=== PATIENT | male | born 1970 | race Caucasian/White ===

== ENCOUNTER 2016-07-05 19:25 | Emergency (ER) | payer OTHER ==
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
--- NOTE | 2016-07-10 10:35 | ED DISCHARGE INSTRUCTIONS ---
Patient: DEEDEE JASON General Instructions Formerly [facility] VisitID: [id number] [address] [place] [address] 46y, M Registration Date/Time: 07/05/2016 Medication refill. Bipolar disorder. Diabetes. Hypertension. INSTRUCTIONS Warnings: Further evaluation is necessary. GENERAL WARNINGS: Return or contact your physician immediately if your condition worsens or changes unexpectedly, if not improving as expected, or if other problems arise. Prescription Medications: Atorvastatin Calcium Oral (Tablet 20 mg), one po daily. # fifteen (15) no refills Omeprazole Oral 20 mg, one po daily. # fifteen (15) no refills QUEtiapine Fumarate Oral (Tablet 200 mg), 1 tablet po 2x a day. # thirty (30). no refills QUEtiapine Fumarate Oral (Tablet 400 mg) 1 tablet, at bedtime. # fifteen (15). no refills Ferrous Sulfate Oral (Tablet 325 (65 Fe) mg), one po daily. # fifteen (15) no refills MetFORMIN HCl Oral (Tablet 850 mg) 1 tablet po 2x a day. # thirty (30). no refills Depakote Oral (Tablet Delayed Release 500 mg) 1 tablet po 2x a day. # thirty (30). no refills. Understanding of the discharge instructions verbalized by patient. Follow-up with: [facility], , , [address], , [place], [phone] Follow up tomorrow. Call for the next available appointment. ADDITIONAL INFORMATION Bipolar Disorder Bipolar disorder (formerly called manic depression) is an illness that causes strong mood swings between depression and blas. This can interfere with work and relationships. In a manic episode, you may think fast and do things quickly. It may seem like you are getting a lot done. At first, this may feel very good; but in the extreme this can lead to a lifestyle that is disorganized, chaotic, and includes risky behavior (spending sprees, sexual acting-out, or drug use). In later stages, it may affect eating (no interest in food) and sleeping (unable to sleep for days at a time). Speech may speed up and become difficult for others to understand. You may appear to others as if you are in your own world. In a depressive episode, you may feel a lack of interest in normal activities. Sometimes there is sadness or guilt without any clear reason. Thinking may become slow and there can be a lack energy or feeling of hopelessness. Some people have thoughts of harming themselves at this stage. Thoughts can even turn to suicide. Between these two phases you may actually feel okay. This does not mean that the illness is gone. People with this disorder will usually have to treat it all of their life. Medication and good care can greatly reduce the symptoms. The exact cause of this illness is unknown. However, there is a genetic link that makes a person more likely to get this problem. Also, the use of drugs such as speed (amphetamine) and cocaine increase the chances of this illness appearing. Home Care: Be sure to take your medicine even if you think you dont need it. Talk with your family about your thoughts and feelings. Follow Up with your doctor or therapist as directed by our staff. They can help you to find ways to improve your life. For more information: The National [place] [employer] Mental Illness www.oksana.org 781-891-9203. Get Prompt Medical Attention if any of the following occur: Feeling like your symptoms are getting worse (depression, agitation, excess energy) Unable to eat or sleep for more than 48 hours Feeling out of control (racing thoughts, poor concentration) Feeling like you want to harm yourself or another Being unable to care for yourself Diabetes (General Information) Cells of the body need glucose (sugar) for fuel. Insulin is the hormone in the body that lets glucose move from the blood into the cells. Diabetes is a chronic health condition where the body is not able to produce enough insulin, or does not respond well to its own insulin. Because the glucose in the blood cannot get into the cells, it builds up in the blood causing high blood sugar (hyperglycemia). Your actual blood sugar level is a result of the balance between several factors. These include what kind of food you eat and how much of it you eat, how much exercise you get, and the amount of insulin present in your body. Eating too much of the wrong kinds of food or not taking diabetes medicine on time can cause high blood sugar. Infections can cause high blood sugar even if you are taking medicines correctly. Missing meals, not eating enough food, or taking too much diabetes medicine can lead to low blood sugar. Untreated over long periods of time, diabetes can cause serious problems such as heart disease, stroke, kidney failure, blindness, nerve pain or loss of feeling in the legs and feet, and gangrene of the feet. With good treatment keeping your blood sugar under control, you can prevent or delay the complications of diabetes. Normal blood sugar levels are 70-130 one to two hours before a meal and not more than 180 two hours after a meal. Home Care: Follow your prescribed diabetic diet and take insulin or oral diabetic medicine exactly as ordered. Monitor blood sugars as advised. Keep a log of your results. This will help your doctor adjust your medicines to keep your blood sugar under control. Try to achieve your ideal weight. Proper diet and exercise can reduce or eliminate the need to take diabetes medicine. Avoid tobacco smoking, which worsens the effect of diabetes on your circulation. The risk of a heart attack in a diabetic is 15 times more likely if you smoke. Pay attention to good foot care. If you have lost feeling in your feet you may not notice an injury or infection. Check your feet and between your toes at least once a week. Wear a medical alert bracelet or carry a card in your wallet explaining that you are diabetic. In the event that you become very ill and are unable to give this information, it will help medical personnel provide proper care. If you become sick with a cold, the flu, or an infection (viral or bacterial), please do the following: Review your diabetes sick plan and contact your physician as instructed. You may have been advised to call the doctor immediately if: Your blood sugar is above 240 while taking your diabetes medication Your urine ketone levels are above normal or showing high levels of ketones You have been vomiting more than 6 hours You experience difficulty to trouble breathing You develop a high fever or you have had a fever for a couple of days and you aren't getting better You become light-headed and more sleepy than usual Keep taking your oral diabetes medicine (pills) even if you have been vomiting and feeling sick. Contact your doctor immediately for advice because you may need insulin to lower your blood sugar until you recover from your illness. Keep taking your insulin, even if you have been vomiting and feeling sick. Call your doctor immediately and ask if a temporary adjustment of your insulin dose is needed based on your blood glucose (sugar) results. Check your blood sugar every 2 to 4 hours, or at least 4 times a day. Check your keytones often. If you are vomiting and having diarrhea, monitor them more frequently. Don't skip meals. Try to eat small meals on a regular schedule, even if you do not have an appetite. Drink water or other calorie-free, non-caffeinated liquids to stay hydrated. If you are nauseated or vomiting, drink small amounts (sips, a teaspoon) every 5 minutes. To prevent dehydration, try to drink a cup or 8 ounces of fluids every hour while you are awake. Always carry a source of fast-acting sugar with you in case you get symptoms of low blood sugar (below 70). At the first sign of low blood sugar, eat or drink 15 to 20 grams of fast-acting sugar to raise your blood sugar. Examples include: 3 to 4 glucose tablets (found at most drugstores) 4 ounces (1/2 cup) of regular (not diet) softdrinks 4 ounces (1/2 cup) of any fruit juice 8 ounces (1 cup) of milk 5 to 6 pieces of hard candy 1 tablespoon of honey Check your blood sugar 15 minutes after treating yourself. If it is still low (below 70), take another 15 to 20 grams of fast-acting sugar. Test again in 15 minutes. If it returns to normal (70 or above), eat a snack or meal to keep your blood sugar in a safe range. If it remains low, call your doctor or go to an emergency room. Follow Up with your doctor as advised by our staff. For more information, contact the [place] [employer]. www.diabetes.org or 344-113-4557. Get Prompt Medical Attention if any of the following occur: HIGH BLOOD SUGAR: frequent urination, dizziness, drowsiness, thirst, headache, nausea or vomiting, abdominal pain, vision changes, fast breathing, confusion or loss of consciousness LOW BLOOD SUGAR: fatigue, headache, shakes, excess sweating, hunger, feeling anxious or restless, vision changes, drowsiness, weakness, confusion or loss of consciousness Chest pain or shortness of breath Dizziness or fainting Weakness of an arm or leg or one side of the face Trouble with speech or vision High Blood Pressure --Established High Blood Pressure (Hypertension) is a chronic disease. The cause is unknown in most cases. It can usually be controlled with lifestyle changes and/or medicines. Symptoms of high blood pressure may include headache, dizziness, visual changes, chest pain and shortness of breath. Sometimes it causes no symptoms at all. However, even if there are no symptoms, untreated high blood pressure increases the risk of heart attack, also known as acute myocardial infarction, or AMI, and stroke. It is a serious health risk and should not be ignored. A normal blood pressure is 120/80 or less. The first (top) number is the "systolic" pressure. The second (bottom) number is the "diastolic" pressure. Hypertension exists when either the top number is 140 or higher, OR the bottom number is 90 or higher on repeated measurements. Home Care: All patients with high blood pressure should do the following to lower their pressure. If you are on medicines, then these methods may reduce or eliminate your need for medicines in the future. Begin a weight loss program if you are overweight. Reduce your salt intake. Avoid high salt foods (olives, pickles, smoked meats, salted potato chips, etc.). Do not add salt to your food at the table. Use only small amounts of salt when cooking. Begin an exercise program. Discuss with your doctor what type of exercise program would be best for you. It doesn't have to be difficult. Even brisk walking for 20 minutes three times a week is a good form of exercise. Avoid medicines which contain heart stimulants. This includes many cold and sinus decongestant pills and sprays as well as diet pills. Check the warnings about hypertension on the label. Stimulants such as amphetamine or cocaine could be lethal for someone with hypertension. Never take these. Limit your caffeine intake or switch to caffeine-free products. Stop smoking. If you are a long-time smoker, this can be hard. Enroll in a stop-smoking program to improve your chance of success. Learning how to handle stress better is an important part of any program to lower blood pressure. Learn about relaxation methods such as meditation, yoga or biofeedback. If medicines were prescribed, take them exactly as directed. Missing doses may cause your blood pressure get out of control. Consider buying an automatic blood pressure machine (available at most pharmacies). Use this to monitor your blood pressure at home and report the results to your doctor. Follow Up: Regular visits to your own physician for blood pressure checks and medicine adjustment is an important part of your care. Make a follow-up appointment as directed by our staff. Get Prompt Medical Attention if any of the following occur: Chest pain or shortness of breath Severe headache Throbbing or rushing sound in the ears Nosebleed Sudden severe abdominal pain Extreme drowsiness, confusion or fainting Dizziness or vertigo (dizziness with spinning sensation) Weakness of an arm or leg or one side of the face Difficulty with speech or vision You have been given the following additional information: Bipolar Disorder Diabetes, General Info Hypertension, Established (Electronically signed by Marciano Juárez MD 07/06/2016 4:57)
--- NOTE | 2016-07-10 10:35 | ED MAR SUMMARY ---
..... Medication Administration Record [facility] [address] [place], [place] [id number] Patient: DEEDEE JASON Visit ID: [id number] 46y, M Weight: 95.2 kg Height/Length: 70 in BMI: 30.1 ALLERGIES: No Known Drug Allergy
--- NOTE | 2016-07-10 10:35 | ED MED RECONCILIATION SUMMARY ---
Patient: DEEDEE JASON Medication Reconciliation Report Merged With [facility] VisitID: [id number] [address] [place] [address] 46y, M Registration Date/Time: 07/05/2016 Weight: 95.2 kg Height/Length: 70 in. BMI: 30.1 ALLERGIES: No Known Drug Allergy The patient's Home Medications are listed below: THE FOLLOWING MEDICATIONS NEED TO BE RECONCILED: ASA Oral Atorvastatin Calcium Oral (20 mg), daily Depakote Oral Depakote Oral (500 mg) 1 tablet, 2x a day Diazepam Oral (10 mg) 1 tablet, 2x a day Ferrous Sulfate Oral (325 (65 Fe) mg), daily MetFORMIN HCl Oral (850 mg) 1 tablet, 2x a day Omeprazole Oral 20 mg, daily QUEtiapine Fumarate Oral (400 mg) 1 tablet, at bedtime QUEtiapine Fumarate Oral (200 mg), 2x a day Sodium Chloride Oral (1 gm) 2 tablets Sodium Chloride Oral (1 gm) 2 tablets Sodium Chloride Oral (1 gm) 2 tablets The source(s) of the original Home Medication information: patient The following Medications were given to the patient in the Emergency Department: None. The following Medications were prescribed to the patient: Atorvastatin Calcium Oral (Tablet 20 mg), one po daily. # fifteen (15) no refills Omeprazole Oral 20 mg, one po daily. # fifteen (15) no refills QUEtiapine Fumarate Oral (Tablet 200 mg), 1 tablet po 2x a day. # thirty (30). no refills QUEtiapine Fumarate Oral (Tablet 400 mg) 1 tablet, at bedtime. # fifteen (15). no refills Ferrous Sulfate Oral (Tablet 325 (65 Fe) mg), one po daily. # fifteen (15) no refills MetFORMIN HCl Oral (Tablet 850 mg) 1 tablet po 2x a day. # thirty (30). no refills Depakote Oral (Tablet Delayed Release 500 mg) 1 tablet po 2x a day. # thirty (30). no refills. -- Marciano Juárez MD
--- NOTE | 2016-07-10 10:35 | ED MAR SUMMARY ---
..... Medication Administration Record [facility] [address] [place], [place] [id number] Patient: DEEDEE JASON Visit ID: [id number] 46y, M Weight: 95.2 kg Height/Length: 70 in BMI: 30.1 ALLERGIES: No Known Drug Allergy
--- NOTE | 2016-07-10 10:35 | ED MED RECONCILIATION SUMMARY ---
Patient: DEEDEE JASON Medication Reconciliation Report [facility] VisitID: [id number] [address] [place] [address] 46y, M Registration Date/Time: 07/05/2016 Weight: 95.2 kg Height/Length: 70 in. BMI: 30.1 ALLERGIES: No Known Drug Allergy The patient's Home Medications are listed below: THE FOLLOWING MEDICATIONS NEED TO BE RECONCILED: ASA Oral Atorvastatin Calcium Oral (20 mg), daily Depakote Oral Depakote Oral (500 mg) 1 tablet, 2x a day Diazepam Oral (10 mg) 1 tablet, 2x a day Ferrous Sulfate Oral (325 (65 Fe) mg), daily MetFORMIN HCl Oral (850 mg) 1 tablet, 2x a day Omeprazole Oral 20 mg, daily QUEtiapine Fumarate Oral (400 mg) 1 tablet, at bedtime QUEtiapine Fumarate Oral (200 mg), 2x a day Sodium Chloride Oral (1 gm) 2 tablets Sodium Chloride Oral (1 gm) 2 tablets Sodium Chloride Oral (1 gm) 2 tablets The source(s) of the original Home Medication information: patient The following Medications were given to the patient in the Emergency Department: None. The following Medications were prescribed to the patient: Atorvastatin Calcium Oral (Tablet 20 mg), one po daily. # fifteen (15) no refills Omeprazole Oral 20 mg, one po daily. # fifteen (15) no refills QUEtiapine Fumarate Oral (Tablet 200 mg), 1 tablet po 2x a day. # thirty (30). no refills QUEtiapine Fumarate Oral (Tablet 400 mg) 1 tablet, at bedtime. # fifteen (15). no refills Ferrous Sulfate Oral (Tablet 325 (65 Fe) mg), one po daily. # fifteen (15) no refills MetFORMIN HCl Oral (Tablet 850 mg) 1 tablet po 2x a day. # thirty (30). no refills Depakote Oral (Tablet Delayed Release 500 mg) 1 tablet po 2x a day. # thirty (30). no refills. -- Marciano Juárez MD
== END 2016-07-06 | disposition home or self-care (01) ==
LOC: ED SRH 19:25
DX: E11.9 Type 2 diabetes mellitus without complications (principal); F31.9 Bipolar disorder, unspecified; I10 Essential (primary) hypertension; Z79.84 Long term (current) use of oral hypoglycemic drugs; F17.210 Nicotine dependence, cigarettes, uncomplicated; Z76.0 Encounter for issue of repeat prescription

== ENCOUNTER 2016-11-05 08:12 | Emergency (ER) | payer OTHER ==
--- NOTE | 2016-11-05 10:27 | DIAGNOSTIC IMAGING REPORT ---
PROCEDURE: XR CHEST 1 VIEW INDICATION: CONFUSION TECHNIQUE: Portable AP view 08:50 a.m. COMPARISON: None. FINDINGS: Lungs are clear. Heart and mediastinum are normal. Thorax is normal. IMPRESSION: 1. Negative chest.
--- NOTE | 2016-11-05 13:28 | ED CLINICAL REPORT ---
Clinical Report - Physicians/Mid Levels [facility] [address] [place] [address] 11/05/2016 8:14 [id number] Time Seen: 08:30 Nov 05 2016. Historian- patient. History limited by vague historian and psychosis. Physical Exam limited by psychosis. HISTORY OF PRESENT ILLNESS Chief Complaint: ANXIOUS and (Hearing voices. Has not been on medications). This started yesterday. The patient has exhibited a behavior change. (Pt walked to neighbors and called 911. He states he is anxious.). He is non-compliant with medication. Has not been sleeping. Has exhibited unusual behavior. The symptoms are described as moderate. No injury is present. REVIEW OF SYSTEMS No headache, dizziness, weakness, chest pain or palpitations. No abdominal pain, vomiting, diarrhea, black stools or fever. No sore throat, cough, difficulty breathing or skin rash. All systems otherwise negative, except as recorded above. PAST HISTORY ( Brain injury with open intracranial wound. COPD - Chronic Obstructive Pulmonary Disease. Asthma Bipolar disorder. Diabetes. Hypertension.). Medications: TEGretol Oral. Depakote Oral. SEROquel Oral. Allergies: No Known Drug Allergy. SOCIAL HISTORY Heavy tobacco smoker (cigarette)- 1 pack per day. Heavy alcohol use. History of drug use: heroin, methamphetamines, marijuana. ADDITIONAL NOTES The nursing notes have been reviewed. PHYSICAL EXAM Vital Signs: 11/05/2016 08:11 BP: 131/86. HR: 88. RR: 20. O2 saturation: 99%. Temp: 98.4 F. Pain level now: 0/10. Appearance: Alert. Patient is in moderate distress. Anxious. Eyes: Pupils equal, round and reactive to light. Neck: Normal inspection. Neck supple. CVS: Normal heart rate and rhythm. Heart sounds normal. Respiratory: Breath sounds normal. Chest nontender. Abdomen: Soft and nontender. Skin: Skin warm. Normal skin color. Psych / Neuro: Speech is incoherent and pressured. Cognition normal. The patient exhibits altered thought processes (Unable to vocalize history or give information that makes sense.). Appears to have auditory hallucinations. Insight and judgement normal. Cranial nerves normal (as tested). No cerebellar findings. No motor deficit. No sensory deficit. Reflexes normal. LABS, X-RAYS, AND EKG EKG: No acute process. No acute ischemia. Normal EKG. Normal sinus rhythm. Rate: 82. Normal P waves. Normal ALFONSO. Normal QRS complex. Normal axis. Normal ST and T waves, QT and QTc. The study has been interpreted contemporaneously. The study has been independently viewed by me. The EKG appears to be a good tracing. Chest X-ray: Normal Chest X-Ray. Laboratory Tests: UA-Culture if indicated: (KOREY: 11/05/2016 08:35) ( [facility] [place] 11/05/2016 09:21) Final results Test Result Flag Units (Reference) URINE COLOR YELLOW URINE APPEARANCE CLEAR URINE GLUCOSE NEGATIVE (NEGATIVE) URINE BILIRUBIN NEGATIVE (NEGATIVE) URINE KETONE NEGATIVE (NEGATIVE) URINE SPECIFIC GRAVITY 1.025 (1.010-1.030) URINE PH 7.0 (5.0-8.0) URINE PROTEIN NEGATIVE (NEGATIVE) URINE UROBILINOGEN 0.2 EU/dL (0.2-1.0) URINE NITRITE NEGATIVE (NEGATIVE) URINE BLOOD NEGATIVE (NEGATIVE) URINE LEUK ESTERASE NEGATIVE (NEGATIVE) URINE RBC NONE SEEN rbc/hpf (0-1) URINE WBC NONE SEEN wbc/hpf (0-1) URINE EPITHELIAL CELLS NONE SEEN EPI/hpf (0-5) URINE BACTERIA NONE SEEN (NONE SEEN) URINE COMMENT CULT NOT INDICATED URINE CULTURES ARE SET-UP BASED ON THE FOLLOWING CRITERIA:POSITIVE NITRITEPOSITIVE LEUKOCYTE ESTERASEGREATER THAN 10 WHITE BLOOD CELLSMODERATE (2+) OR GREATER BACTERIA CBC w Diff: (KOREY: 11/05/2016 09:00) ( [facility] [place] 11/05/2016 09:31) Final results Test Result Flag Units (Reference) WHITE BLOOD COUNT 11.4 K/uL (4.5-11.5) RED BLOOD COUNT 4.43 L M/uL (4.50-5.90) HEMOGLOBIN 12.5 L gm/dL (13.5-17.5) HEMATOCRIT 36.9 L % (41.0-53.0) MEAN CELL VOLUME 83 fL (80-100) MEAN CORPUSCULAR HGB 28 pg (26-34) MEAN CORPUSCULAR HGB CONC 34 g/dL (31-37) RED CELL DISTRIBUTION WIDTH 15.1 H % (11.6-14.8) PLATELET COUNT 217 K/uL (150-400) NEUTROPHIL % 73.1 % (50-75) LYMPH % 20.1 L % (25-40) MONO % 5.7 % (3-14) EOSINOPHIL % 0.8 % (0-4) BASOPHIL % 0.3 % (0-2) Urine Drug Screen: (KOREY: 11/05/2016 08:35) ( [facility] 11/05/2016 09:14) Final results Test Result Flag Units (Reference) AMPHETAMINE/METHAMPHETAMINE NEGATIVE (NEGATIVE) BARBITURATE NEGATIVE (NEGATIVE) BENZODIAZEPINE NEGATIVE (NEGATIVE) CANNABINOID POSITIVE H (NEGATIVE) COCAINE NEGATIVE (NEGATIVE) ECSTASY NEGATIVE (NEGATIVE) METHADONE NEGATIVE (NEGATIVE) OPIATE NEGATIVE (NEGATIVE) The urine drug screen is a qualitative screening test fordrug overdose and abuse. All screen results should beconsidered as presumptive.Drugs screened for are as follows:BenzodiazepinesCocaineAmphetamines/MetamphetaminesTHC (Tetrahydrocannabinol)OpiatesBarbituratesEcstasyMethadonePositive results are unconfirmed. For confirmation, notifythe lab for the specimen to be sent to the reference lab.All confirmations must be performed by a differentmethodology.The ingestion of natural herbal and plant productscontaining Ephedra/Ephedra metabolites can produce in urineone or more substances capable of cross reacting withamphetamine/methamphetamine immunoassays. These testsprovide a preliminary result only. A more specificalternative chemical method must be used to obtain aconfirmed analytical result. CHEM 13 PANEL: (KOREY: 11/05/2016 09:00) ( [facility] 11/05/2016 10:34) Final results Test Result Flag Units (Reference) ETHYL ALCOHOL <3 L mg/dL (3-10) This is a corrected result 11/05/16 0951:ETOH previously reported as: 44 H mg/dL GLUCOSE 142 H mg/dL (70-110) BUN 17 mg/dL (7-18) CREATININE 0.7 mg/dL (0.6-1.3) Estimated GFR >60 mL/min Estimated GFR- >60 mL/min Note: Persistent reduction over 3 months in eGFR<60 mL/min/1.73 m2 defines CKD. Patients with eGFR values>=60 mL/min/1.73 m2 may also have CKD if evidence ofpersistent proteinuria. Additional information may be foundat www.kidney.org. SODIUM 141 mmol/L (136-145) POTASSIUM 3.9 mmol/L (3.5-5.1) CHLORIDE 105 mmol/L (98-107) CARBON DIOXIDE 24 mmol/L (21-32) CALCIUM 8.7 mg/dL (8.5-10.1) TOTAL PROTEIN 8.1 g/dL (6.4-8.2) ALBUMIN 3.7 g/dL (3.3-5.0) BILIRUBIN, TOTAL 0.4 mg/dL (0.0-1.0) ALKALINE PHOSPHATASE 66 U/L (46-116) AST (SGOT) 47 H U/L (15-37) ALT (SGPT) 223 H U/L (12-78) MAGNESIUM 2.0 mg/dL (1.8-2.4) CPK 121 U/L (24-260) TROPONIN I <0.05 ng/mL (0.00-1.5) TROPONIN REFERENCE RANGE:<0.1 NEGATIVE0.1-1.5 INDETERMINANT>1.5 POSITIVE . PROGRESS AND PROCEDURES Course of Care: Patient has known psychosis in the past as well as drug abuse. His present psychiatric situation may be due to both. [phone] Ollie Jauregui from [facility] 04:38 11/06/16. Pt has a crisis bed, will be available @ 2530. CLINICAL IMPRESSION Chronic schizoaffective disorder (bipolar type) with exacerbation. (Electronically signed by [address]. 11/06/2016 9:05)
--- NOTE | 2016-11-05 13:28 | ED ORDER SUMMARY ---
..... Patient: DEEDEE JASON OrderSheet [facility] VisitID: [id number] [address] [place] [address] 46y, M Registration Date/Time: 11/05/2016 ORDER SHEET Weight: 87.5 kg (stated) Allergies: No Known Drug Allergy GENERAL ORDERS: Packing Supervisor (Continuous) (08:11/05/2016 Roseline CARR) (Ack 8:39 LMuller) (8:41 MWinterer R.N.) Chest 1V Urgent (08:11/05/2016 Roseline CARR) (Ack 8:39 LMuller) (8:44 MWinterer R.N.) Cardiac Panel Stat (:11/05/2016 Roseline CARR) (Ack 8:39 LMuller) (9:32 MWinterer R.N.) Urine Drug Screen Urgent (:11/05/2016 Roseline CARR) (Ack 8:39 LMuller) (9:32 MWinterer R.N.) UA-Culture if indicated Urgent (08:11/05/2016 Roseline CARR) (Ack 8:39 LMuller) (9:32 MWinterer R.N.) Ethyl Alcohol Urgent (:11/05/2016 Roseline CARR) (Ack 8:39 LMuller) (9:32 MWinterer R.N.) Pulse oximeter (:11/05/2016 Roseline CARR) (Ack 8:39 LMuller) (8:41 MWinterer R.N.) EKG - ER Stat (:11/05/2016 Roseline CARR) (Ack 8:39 LMuller) (9:32 MWinterer R.N.) Acetaminophen Level Urgent (:11/05/2016 Rakan Stiles) (Ack 10:25 LMuller) (10:39 MWinterer R.N.) Salicylate Level Urgent (:11/05/2016 Rakan Stiles) (Ack 10:25 LMuller) (10:39 MWinterer R.N.) MEDICATION ORDERS: Alprazolam PO 0.5 mg (NOW) (08:38 11/05/2016 Roseline CARR) (Ack 8:41 MWinterer R.N.) (8:44 MWinterer R.N.) - (Quetiapine oral 50 mg PO once now) (12:29 11/05/2016 Rakan Stiles) (13:17 MWinterer R.N.) IV FLUIDS: IV Saline Lock (08:38 11/05/2016 Roseline CARR) (Ack 8:41 MWinterer R.N.) (9:07 MWinterer R.N.) ORDER SHEET NOTES: [Electronically signed by Mono Porter Dr. (09:05 11/06/2016)] [Electronically signed by Diane Brown R.N. (09:50 11/06/2016)] [Electronically locked/signed by Diane Brown R.N. (09:50 11/06/2016)]
--- NOTE | 2016-11-05 13:28 | ED NURSING NOTES ---
Clinical Report - Nurses [facility] [address] [place] [address] 11/05/2016 8:14 Patient: DEEDEE JASON TRIAGE Acuity: LEVEL 4. Chief Complaint: ANXIETY. Alert. No acute distress. SEPSIS SCREEN: Sepsis Screen. Negative (no infection suspected/documented). ANDIE COMA SCORE: Daggett Coma Scale: 15- eyes open spontaneously (4); best verbal response- oriented x 4 (5); best motor response- obeys commands (6). --08:15 Diane Brown R.N. 08:11 11/05/16. BP: 131/86. HR: 88. RR: 20. O2 saturation: 99% on room air. Temp: 98.4 F (oral). Pain level now: 0/10. --08:15 Diane Brown R.N. Weight: 87.5 kg stated. Height/Length: 66 inches Per Patient. BMI: 31.2. --08:15 Diane Brown R.N. Medications SEROquel Oral. --08:11 Diane Brown R.N. Depakote Oral. --08:11 Diane Brown R.N. TEGretol Oral. --08:12 Diane Brown R.N. Medication/allergy information source: the patient. --08:15 Diane Brown R.N. Allergies No Known Drug Allergy. --08:12 Diane Brown R.N. History Arrived by EMS. Historian: patient. Onset: last night. SOCIAL HX: Current every day heavy tobacco smoker- 1 pack per day. Heavy alcohol use. History of heavy IV drug use: heroin, methamphetamines, marijuana. Recently used drugs. (pt states he does not know when he used last). NUTRITIONAL RISK ASSESSMENT: The nutritional risk assessment revealed no deficiencies. FUNCTIONAL ASSESSMENT: Functional assessment: no impairments noted. LEARNING NEEDS ASSESSMENT: The learning needs assessment revealed no barriers. SKIN INTEGRITY ASSESSMENT: Skin integrity risk assessment completed. No skin integrity risk identified. --08:15 Diane Brown R.N. PROBLEMS: Brain injury with open intracranial wound. COPD - Chronic Obstructive Pulmonary Disease. Asthma. --08:13 Diane Brown R.N. Interventions ID band on patient. To treatment room. --08:15 Diane Brown R.N. PHYSICAL ASSESSMENT To room via stretcher. GENERAL / NEURO / PSYCH: Alert. Oriented X 4. Appears in no acute distress. Speech within normal limits. Poor eye contact. RESPIRATORY: Respirations not labored. GI / : Abdomen soft and nontender. SKIN: Skin intact. Skin is warm and dry. Skin color is within normal limits. --08:16 Diane Brown R.N. NURSING PROGRESS NOTES Patient gowned. Call light placed in reach. Side rails up x 2. Bed placed in lowest position. Brakes of bed on. Patient ready for evaluation- chart flagged and ED physician notified. --08:16 Diane Brown R.N. 08:44 11/05/2016 Alprazolam PO 0.5 mg given. Allergies verified, confirmed 5 rights and sedative warning given to the patient. --08:44 Diane Brown R.N. 09:07 11/05/2016 Site #1 started via IV in the right antecubital space with an 20g angiocath, with aseptic technique and good blood return; one attempt. Blood drawn: rainbow set. Labeled in the presence of the patient and sent to the lab. Saline lock flushed with 10 mL saline. --09:07 Diane Brown R.N. 09:34 11/05/16. cardiac monitor technician, pulse oximeter and NIBP monitor placed on patient; cardiac care unit nurse- Lead II; monitor alarms on (NSR noted). --09:34 Diane Brown R.N. EKG time: (925). EKG was performed by a jose francisco and shown to the ED physician. --09:37 Nuzhat Jason ER Tech1 11:16 11/05/16. ( Gave pt a urinal and sandwich. Pt asking if we can call his brother and if we can give him a shot to knock him out.). --11:16 Nuzhat Jason ER Tech1 13:17 11/05/2016 Quetiapine * PO 50 mg --13:17 Diane Brown R.N. 15:37 11/05/16. BP: 124/74. HR: 90. RR: 18. O2 saturation: 98% on room air. Pain level now: 0/10. --15:37 Diane Brown R.N. ( Pt has been eating sandwiches, crackers, and juice. Pt voided 800 mL in urinal.). --15:39 Diane Brown R.N. 15:39 11/05/16. Reassessment after medication administered. He reports no complaints and he is calm and resting quietly. --15:39 Diane Brown R.N. 15:46 11/05/16. ( Pt informed of reason of wait time. Pt cooperative with plan of care at this time.). --15:46 Diane Brown R.N. 17:22 11/05/16. BP: 115/70. HR: 81. RR: 18. O2 saturation: 95% on room air. --17:23 Diane Brown R.N. ( patient resting watching tv and snacking on meal tray. no complaints at this time.). --21:33 Susan Batres R.N. 21:32 11/05/16. BP: 114/98. HR: 86. RR: 17. O2 saturation: 99%. Pain level now: 0/10. --21:33 Susan Batres R.N. GENERAL / NEURO / PSYCH: Alert. Patient appears calm and cooperative. RESPIRATORY: No respiratory distress. SKIN: Skin color within normal limits. --21:33 Susan Batres R.N. Care transferred and report received. --23:31 Idania Rhoades ( PAT team is here to eval pt). --23:58 Idania Rhoades ( pt talking to on the phone to intake at this time). --02:21 Bello Rhoades. The patient is resting quietly. --02:55 Idania Rhoades 02:55 11/06/16. BP: 136/78. HR: 64. RR: 18. O2 saturation: 98%. Temp: 97.8 F. Pain level now: 0/10. --02:55 Idania Rhoades ( [facility] triage will accept the pt between 0830 and 0900). --04:24 Bello Rhoades. The patient is resting quietly. --05:29 Mandy RhoadesNIsidro 06:24 11/06/16. BP: 116/54. HR: 78. RR: 16. O2 saturation: 97%. Temp: deferred. Pain level now: 0/10. --06:24 Verona RIsidroN. The patient is resting quietly. --06:24 Idania Rhoades 07:54 11/06/16. ( Spoke with patients mental health counselor, who called, updated on patients status and that patient is going to [facility] Triage via BLS ambulance in the next hour). --07:54 Norman Chandler R.N. DISPOSITION / DISCHARGE Departure time: 08:00 Nov 06 2016. Condition at departure: improved and stable. Transferred. Summary of care provided to transport team via paper ([facility]). Transported via ambulance by EMS. --09:50 Diane Brown R.N. 09:47 11/06/16. BP: 108/61. HR: 76. RR: 18. O2 saturation: 100%. Temp: 98 F (oral). Pain level now: 0/10. --09:50 Diane Brown R.N. 07:50 11/06/2016 Site #1 removed upon discharge. Catheter intact. Manual pressure and bandage applied. --09:50 Diane Brown R.N. Locked/Released at 11/06/2016 9:50 by Diane Brown R.N.
--- NOTE | 2016-11-05 13:28 | ED ORDER SUMMARY ---
..... Patient: DEEDEE JASON OrderSheet [facility] VisitID: [id number] [address] [place] [address] 46y, M Registration Date/Time: 11/05/2016 ORDER SHEET Weight: 87.5 kg (stated) Allergies: No Known Drug Allergy GENERAL ORDERS: Slp (Continuous) (08:11/05/2016 Roseline CARR) (Ack 8:39 LMuller) (8:41 MWinterer R.N.) Chest 1V Urgent (08:11/05/2016 Roseline CARR) (Ack 8:39 LMuller) (8:44 MWinterer R.N.) Cardiac Panel Stat (:11/05/2016 Roseline CARR) (Ack 8:39 LMuller) (9:32 MWinterer R.N.) Urine Drug Screen Urgent (:11/05/2016 Roseline CARR) (Ack 8:39 LMuller) (9:32 MWinterer R.N.) UA-Culture if indicated Urgent (08:11/05/2016 Roseline CARR) (Ack 8:39 LMuller) (9:32 MWinterer R.N.) Ethyl Alcohol Urgent (:11/05/2016 Roseline CARR) (Ack 8:39 LMuller) (9:32 MWinterer R.N.) Pulse oximeter (:11/05/2016 Roseline CARR) (Ack 8:39 LMuller) (8:41 MWinterer R.N.) EKG - ER Stat (:11/05/2016 Roseline CARR) (Ack 8:39 LMuller) (9:32 MWinterer R.N.) Acetaminophen Level Urgent (:11/05/2016 Rakan Stiles) (Ack 10:25 LMuller) (10:39 MWinterer R.N.) Salicylate Level Urgent (:11/05/2016 Rakan Stiles) (Ack 10:25 LMuller) (10:39 MWinterer R.N.) MEDICATION ORDERS: Alprazolam PO 0.5 mg (NOW) (08:38 11/05/2016 Roseline CARR) (Ack 8:41 MWinterer R.N.) (8:44 MWinterer R.N.) - (Quetiapine oral 50 mg PO once now) (12:29 11/05/2016 Rakan Stiles) (13:17 MWinterer R.N.) IV FLUIDS: IV Saline Lock (08:38 11/05/2016 Roseline CARR) (Ack 8:41 MWinterer R.N.) (9:07 MWinterer R.N.) ORDER SHEET NOTES: [Electronically signed by Mono Porter Dr. (09:05 11/06/2016)] [Electronically signed by Diane Brown R.N. (09:50 11/06/2016)] [Electronically locked/signed by Diane Brown R.N. (09:50 11/06/2016)]
--- NOTE | 2016-11-05 13:28 | ED NURSING NOTES ---
Clinical Report - Nurses [facility] [address] [place] [address] 11/05/2016 8:14 Patient: DEEDEE JASON TRIAGE Acuity: LEVEL 4. Chief Complaint: ANXIETY. Alert. No acute distress. SEPSIS SCREEN: Sepsis Screen. Negative (no infection suspected/documented). ANDIE COMA SCORE: Tyler Coma Scale: 15- eyes open spontaneously (4); best verbal response- oriented x 4 (5); best motor response- obeys commands (6). --08:15 Diane Brown R.N. 08:11 11/05/16. BP: 131/86. HR: 88. RR: 20. O2 saturation: 99% on room air. Temp: 98.4 F (oral). Pain level now: 0/10. --08:15 Diane Brown R.N. Weight: 87.5 kg stated. Height/Length: 66 inches Per Patient. BMI: 31.2. --08:15 Diane Brown R.N. Medications SEROquel Oral. --08:11 Diane Brown R.N. Depakote Oral. --08:11 Diane Brown R.N. TEGretol Oral. --08:12 Diane Brown R.N. Medication/allergy information source: the patient. --08:15 Diane Brown R.N. Allergies No Known Drug Allergy. --08:12 Diane Brown R.N. History Arrived by EMS. Historian: patient. Onset: last night. SOCIAL HX: Current every day heavy tobacco smoker- 1 pack per day. Heavy alcohol use. History of heavy IV drug use: heroin, methamphetamines, marijuana. Recently used drugs. (pt states he does not know when he used last). NUTRITIONAL RISK ASSESSMENT: The nutritional risk assessment revealed no deficiencies. FUNCTIONAL ASSESSMENT: Functional assessment: no impairments noted. LEARNING NEEDS ASSESSMENT: The learning needs assessment revealed no barriers. SKIN INTEGRITY ASSESSMENT: Skin integrity risk assessment completed. No skin integrity risk identified. --08:15 Diane Brown R.N. PROBLEMS: Brain injury with open intracranial wound. COPD - Chronic Obstructive Pulmonary Disease. Asthma. --08:13 Diane Brown R.N. Interventions ID band on patient. To treatment room. --08:15 Diane Brown R.N. PHYSICAL ASSESSMENT To room via stretcher. GENERAL / NEURO / PSYCH: Alert. Oriented X 4. Appears in no acute distress. Speech within normal limits. Poor eye contact. RESPIRATORY: Respirations not labored. GI / : Abdomen soft and nontender. SKIN: Skin intact. Skin is warm and dry. Skin color is within normal limits. --08:16 Diane Brown R.N. NURSING PROGRESS NOTES Patient gowned. Call light placed in reach. Side rails up x 2. Bed placed in lowest position. Brakes of bed on. Patient ready for evaluation- chart flagged and ED physician notified. --08:16 Diane Brown R.N. 08:44 11/05/2016 Alprazolam PO 0.5 mg given. Allergies verified, confirmed 5 rights and sedative warning given to the patient. --08:44 Diane Brown R.N. 09:07 11/05/2016 Site #1 started via IV in the right antecubital space with an 20g angiocath, with aseptic technique and good blood return; one attempt. Blood drawn: rainbow set. Labeled in the presence of the patient and sent to the lab. Saline lock flushed with 10 mL saline. --09:07 Diane Brown R.N. 09:34 11/05/16. dumpling machine operator, pulse oximeter and NIBP monitor placed on patient; unloader operator- Lead II; monitor alarms on (NSR noted). --09:34 Diane Brown R.N. EKG time: (925). EKG was performed by a jose francisco and shown to the ED physician. --09:37 Nuzhat Jason ER Tech1 11:16 11/05/16. ( Gave pt a urinal and sandwich. Pt asking if we can call his brother and if we can give him a shot to knock him out.). --11:16 Nuzhat Jason ER Tech1 13:17 11/05/2016 Quetiapine * PO 50 mg --13:17 Diane Brown R.N. 15:37 11/05/16. BP: 124/74. HR: 90. RR: 18. O2 saturation: 98% on room air. Pain level now: 0/10. --15:37 Diane Brown R.N. ( Pt has been eating sandwiches, crackers, and juice. Pt voided 800 mL in urinal.). --15:39 Diane Brown R.N. 15:39 11/05/16. Reassessment after medication administered. He reports no complaints and he is calm and resting quietly. --15:39 Diane Brown R.N. 15:46 11/05/16. ( Pt informed of reason of wait time. Pt cooperative with plan of care at this time.). --15:46 Diane Brown R.N. 17:22 11/05/16. BP: 115/70. HR: 81. RR: 18. O2 saturation: 95% on room air. --17:23 Diane Brown R.N. ( patient resting watching tv and snacking on meal tray. no complaints at this time.). --21:33 Susan Batres R.N. 21:32 11/05/16. BP: 114/98. HR: 86. RR: 17. O2 saturation: 99%. Pain level now: 0/10. --21:33 Susan Batres R.N. GENERAL / NEURO / PSYCH: Alert. Patient appears calm and cooperative. RESPIRATORY: No respiratory distress. SKIN: Skin color within normal limits. --21:33 Susan Batres R.N. Care transferred and report received. --23:31 Idania Rhoades ( PAT team is here to eval pt). --23:58 Idania Rhoades ( pt talking to on the phone to intake at this time). --02:21 Bello Rhoades. The patient is resting quietly. --02:55 Idania Rhoades 02:55 11/06/16. BP: 136/78. HR: 64. RR: 18. O2 saturation: 98%. Temp: 97.8 F. Pain level now: 0/10. --02:55 Idania Rhoades ( [facility] triage will accept the pt between 0830 and 0900). --04:24 Bello Rhoades. The patient is resting quietly. --05:29 Mandy RhoadesNIsidro 06:24 11/06/16. BP: 116/54. HR: 78. RR: 16. O2 saturation: 97%. Temp: deferred. Pain level now: 0/10. --06:24 Verona RIsidroN. The patient is resting quietly. --06:24 Idania Rhoades 07:54 11/06/16. ( Spoke with patients mental health counselor, who called, updated on patients status and that patient is going to [facility] Triage via BLS ambulance in the next hour). --07:54 Norman Chandler R.N. DISPOSITION / DISCHARGE Departure time: 08:00 Nov 06 2016. Condition at departure: improved and stable. Transferred. Summary of care provided to transport team via paper ([facility]). Transported via ambulance by EMS. --09:50 Diane Brown R.N. 09:47 11/06/16. BP: 108/61. HR: 76. RR: 18. O2 saturation: 100%. Temp: 98 F (oral). Pain level now: 0/10. --09:50 Diane Brown R.N. 07:50 11/06/2016 Site #1 removed upon discharge. Catheter intact. Manual pressure and bandage applied. --09:50 Diane Brown R.N. Locked/Released at 11/06/2016 9:50 by Diane Brown R.N.
--- NOTE | 2016-11-05 13:28 | ED CLINICAL REPORT ---
Clinical Report - Physicians/Mid Levels [facility] [address] [place] [address] 11/05/2016 8:14 [id number] Time Seen: 08:30 Nov 05 2016. Historian- patient. History limited by vague historian and psychosis. Physical Exam limited by psychosis. HISTORY OF PRESENT ILLNESS Chief Complaint: ANXIOUS and (Hearing voices. Has not been on medications). This started yesterday. The patient has exhibited a behavior change. (Pt walked to neighbors and called 911. He states he is anxious.). He is non-compliant with medication. Has not been sleeping. Has exhibited unusual behavior. The symptoms are described as moderate. No injury is present. REVIEW OF SYSTEMS No headache, dizziness, weakness, chest pain or palpitations. No abdominal pain, vomiting, diarrhea, black stools or fever. No sore throat, cough, difficulty breathing or skin rash. All systems otherwise negative, except as recorded above. PAST HISTORY ( Brain injury with open intracranial wound. COPD - Chronic Obstructive Pulmonary Disease. Asthma Bipolar disorder. Diabetes. Hypertension.). Medications: TEGretol Oral. Depakote Oral. SEROquel Oral. Allergies: No Known Drug Allergy. SOCIAL HISTORY Heavy tobacco smoker (cigarette)- 1 pack per day. Heavy alcohol use. History of drug use: heroin, methamphetamines, marijuana. ADDITIONAL NOTES The nursing notes have been reviewed. PHYSICAL EXAM Vital Signs: 11/05/2016 08:11 BP: 131/86. HR: 88. RR: 20. O2 saturation: 99%. Temp: 98.4 F. Pain level now: 0/10. Appearance: Alert. Patient is in moderate distress. Anxious. Eyes: Pupils equal, round and reactive to light. Neck: Normal inspection. Neck supple. CVS: Normal heart rate and rhythm. Heart sounds normal. Respiratory: Breath sounds normal. Chest nontender. Abdomen: Soft and nontender. Skin: Skin warm. Normal skin color. Psych / Neuro: Speech is incoherent and pressured. Cognition normal. The patient exhibits altered thought processes (Unable to vocalize history or give information that makes sense.). Appears to have auditory hallucinations. Insight and judgement normal. Cranial nerves normal (as tested). No cerebellar findings. No motor deficit. No sensory deficit. Reflexes normal. LABS, X-RAYS, AND EKG EKG: No acute process. No acute ischemia. Normal EKG. Normal sinus rhythm. Rate: 82. Normal P waves. Normal ALFONSO. Normal QRS complex. Normal axis. Normal ST and T waves, QT and QTc. The study has been interpreted contemporaneously. The study has been independently viewed by me. The EKG appears to be a good tracing. Chest X-ray: Normal Chest X-Ray. Laboratory Tests: UA-Culture if indicated: (KOREY: 11/05/2016 08:35) ( [facility] 11/05[facility] 09:21) Final results Test Result Flag Units (Reference) URINE COLOR YELLOW URINE APPEARANCE CLEAR URINE GLUCOSE NEGATIVE (NEGATIVE) URINE BILIRUBIN NEGATIVE (NEGATIVE) URINE KETONE NEGATIVE (NEGATIVE) URINE SPECIFIC GRAVITY 1.025 (1.010-1.030) URINE PH 7.0 (5.0-8.0) URINE PROTEIN NEGATIVE (NEGATIVE) URINE UROBILINOGEN 0.2 EU/dL (0.2-1.0) URINE NITRITE NEGATIVE (NEGATIVE) URINE BLOOD NEGATIVE (NEGATIVE) URINE LEUK ESTERASE NEGATIVE (NEGATIVE) URINE RBC NONE SEEN rbc/hpf (0-1) URINE WBC NONE SEEN wbc/hpf (0-1) URINE EPITHELIAL CELLS NONE SEEN EPI/hpf (0-5) URINE BACTERIA NONE SEEN (NONE SEEN) URINE COMMENT CULT NOT INDICATED URINE CULTURES ARE SET-UP BASED ON THE FOLLOWING CRITERIA:POSITIVE NITRITEPOSITIVE LEUKOCYTE ESTERASEGREATER THAN 10 WHITE BLOOD CELLSMODERATE (2+) OR GREATER BACTERIA CBC w Diff: (KOREY: 11/05/2016 09:00) ( [facility] 11/05/2016 09:31) Final results Test Result Flag Units (Reference) WHITE BLOOD COUNT 11.4 K/uL (4.5-11.5) RED BLOOD COUNT 4.43 L M/uL (4.50-5.90) HEMOGLOBIN 12.5 L gm/dL (13.5-17.5) HEMATOCRIT 36.9 L % (41.0-53.0) MEAN CELL VOLUME 83 fL (80-100) MEAN CORPUSCULAR HGB 28 pg (26-34) MEAN CORPUSCULAR HGB CONC 34 g/dL (31-37) RED CELL DISTRIBUTION WIDTH 15.1 H % (11.6-14.8) PLATELET COUNT 217 K/uL (150-400) NEUTROPHIL % 73.1 % (50-75) LYMPH % 20.1 L % (25-40) MONO % 5.7 % (3-14) EOSINOPHIL % 0.8 % (0-4) BASOPHIL % 0.3 % (0-2) Urine Drug Screen: (KOREY: 11/05/2016 08:35) ( [facility] 11[facility] 09[facility]14) Final results Test Result Flag Units (Reference) AMPHETAMINE/METHAMPHETAMINE NEGATIVE (NEGATIVE) BARBITURATE NEGATIVE (NEGATIVE) BENZODIAZEPINE NEGATIVE (NEGATIVE) CANNABINOID POSITIVE H (NEGATIVE) COCAINE NEGATIVE (NEGATIVE) ECSTASY NEGATIVE (NEGATIVE) METHADONE NEGATIVE (NEGATIVE) OPIATE NEGATIVE (NEGATIVE) The urine drug screen is a qualitative screening test fordrug overdose and abuse. All screen results should beconsidered as presumptive.Drugs screened for are as follows:BenzodiazepinesCocaineAmphetamines/MetamphetaminesTHC (Tetrahydrocannabinol)OpiatesBarbituratesEcstasyMethadonePositive results are unconfirmed. For confirmation, notifythe lab for the specimen to be sent to the reference lab.All confirmations must be performed by a differentmethodology.The ingestion of natural herbal and plant productscontaining Ephedra/Ephedra metabolites can produce in urineone or more substances capable of cross reacting withamphetamine/methamphetamine immunoassays. These testsprovide a preliminary result only. A more specificalternative chemical method must be used to obtain aconfirmed analytical result. CHEM 13 PANEL: (KOREY: 11/05/2016 09:00) ( [facility] 11/05/2016 10:34) Final results Test Result Flag Units (Reference) ETHYL ALCOHOL <3 L mg/dL (3-10) This is a corrected result 11/05/16 0951:ETOH previously reported as: 44 H mg/dL GLUCOSE 142 H mg/dL (70-110) BUN 17 mg/dL (7-18) CREATININE 0.7 mg/dL (0.6-1.3) Estimated GFR >60 mL/min Estimated GFR- >60 mL/min Note: Persistent reduction over 3 months in eGFR<60 mL/min/1.73 m2 defines CKD. Patients with eGFR values>=60 mL/min/1.73 m2 may also have CKD if evidence ofpersistent proteinuria. Additional information may be foundat www.kidney.org. SODIUM 141 mmol/L (136-145) POTASSIUM 3.9 mmol/L (3.5-5.1) CHLORIDE 105 mmol/L (98-107) CARBON DIOXIDE 24 mmol/L (21-32) CALCIUM 8.7 mg/dL (8.5-10.1) TOTAL PROTEIN 8.1 g/dL (6.4-8.2) ALBUMIN 3.7 g/dL (3.3-5.0) BILIRUBIN, TOTAL 0.4 mg/dL (0.0-1.0) ALKALINE PHOSPHATASE 66 U/L (46-116) AST (SGOT) 47 H U/L (15-37) ALT (SGPT) 223 H U/L (12-78) MAGNESIUM 2.0 mg/dL (1.8-2.4) CPK 121 U/L (24-260) TROPONIN I <0.05 ng/mL (0.00-1.5) TROPONIN REFERENCE RANGE:<0.1 NEGATIVE0.1-1.5 INDETERMINANT>1.5 POSITIVE . PROGRESS AND PROCEDURES Course of Care: Patient has known psychosis in the past as well as drug abuse. His present psychiatric situation may be due to both. [phone] Ollie Jauregui from [facility] 04:38 11/06/16. Pt has a crisis bed, will be available @ 0030. CLINICAL IMPRESSION Chronic schizoaffective disorder (bipolar type) with exacerbation. (Electronically signed by Mono Porter Dr. 11/06/2016 9:05)
--- NOTE | 2016-11-06 09:51 | ED MAR SUMMARY ---
..... Medication Administration Record [facility] [address] [place] [address] Patient: DEEDEE JASON Visit ID: [id number] 46y, M Weight: 87.5 kg Height/Length: 66 in BMI: 31.2 ALLERGIES: No Known Drug Allergy Given 08:44 11/05/2016 Diane Brown RJules Medication Administered: ALPRAZOLAM [PO], Dose: 0.5 mg PO. Medication Ordered: Alprazolam PO 0.5 mg (NOW). Given 13:17 11/05/2016 Diane Brown, RIsidroN. Medication Administered: Quetiapine *, Dose: 50 mg * PO. Medication Ordered: - (Quetiapine oral 50 mg PO once now).
--- NOTE | 2016-11-06 09:51 | ED MED RECONCILIATION SUMMARY ---
Patient: DEEDEE JASON Medication Reconciliation Report [facility] VisitID: [id number] [address] [place] [address] 46y, M Registration Date/Time: 11/05/2016 Weight: 87.5 kg Height/Length: 66 in. BMI: 31.2 ALLERGIES: No Known Drug Allergy The patient's Home Medications are listed below: THE FOLLOWING MEDICATIONS NEED TO BE RECONCILED: Depakote Oral SEROquel Oral TEGretol Oral The source(s) of the original Home Medication information: patient The following Medications were given to the patient in the Emergency Department: Alprazolam [PO] PO 0.5 mg, administered: 11/05/2016 8:44:00 AM Quetiapine PO 50 mg, administered: 11/05/2016 1:17:00 PM The following Medications were prescribed to the patient: None.
--- NOTE | 2016-11-06 09:51 | ED MAR SUMMARY ---
..... Medication Administration Record [facility] [address] [place] [address] Patient: DEEDEE JASON Visit ID: [id number] 46y, M Weight: 87.5 kg Height/Length: 66 in BMI: 31.2 ALLERGIES: No Known Drug Allergy Given 08:44 11/05/2016 Diane Brown RJules Medication Administered: ALPRAZOLAM [PO], Dose: 0.5 mg PO. Medication Ordered: Alprazolam PO 0.5 mg (NOW). Given 13:17 11/05/2016 Diane Brown, RIsidroN. Medication Administered: Quetiapine *, Dose: 50 mg * PO. Medication Ordered: - (Quetiapine oral 50 mg PO once now).
--- NOTE | 2016-11-06 09:51 | ED DISCHARGE INSTRUCTIONS ---
Patient: DEEDEE JASON General Instructions [facility] VisitID: [id number] [place] [address] 46y, M Registration Date/Time: 11/05/2016 Chronic schizoaffective disorder (bipolar type) with exacerbation. ADDITIONAL INFORMATION Schizoaffective Disorder You have been diagnosed with schizoaffective disorder. This is an illness which has symptoms of both schizophrenia and a mood disorder such as depression or bipolar disorder. Schizophrenia is a chronic, severe and disabling brain disorder. The cause of schizophrenia is not yet known. It is believed to be a result of genetic and biological factors like brain chemistry and structure. Depression is one type of mood disorder that is related to brain chemistry. It is not just a state of unhappiness or sadness but a true disease. You may feel a lack of interest in normal activities. Sometimes there is sadness or guilt without any clear reason. Thinking may become slow and there can be a lack energy or feeling of hopelessness. Some people have thoughts of harming themselves at this stage. Thoughts can even turn to suicide. Bipolar Disorder (also called Manic Depression) is the other major mood disorder. It is an illness that causes strong mood swings between depression and blas. In the manic phase you may think fast and do things quickly. It may seem like you are getting a lot done. At first, this may feel very good; but in the extreme this can lead to a life style that is disorganized, chaotic and includes risky behavior (spending sprees, sexual acting out or drug use). In later stages, it may affect eating (no interest in food) and sleeping (unable to sleep for days at a time). Speech may speed up and become difficult for others to understand. You may appear to others as if you are in your own world. The exact cause of schizoaffective disorder is unknown. However, a person is more likely to get this illness if a family member has it. Use of drugs such as amphetamines (speed) and cocaine increase the risk of getting this disorder. People with this illness will generally have to treat it long-term. Medicine and psychotherapy can help. Home Care: Be sure to take your medicine as directed, even if you think you dont need it. Seek support from friends or family by talking about your feelings and thoughts. Avoid the use of amphetamines, cocaine and related drugs. These will only make your condition worse. Follow Up with your doctor or as advised by our staff. For more information contact The National [place] on Mental Illness 028-821-9425 www.oksana.org Get Prompt Medical Attention if any of the following occur: Feeling like your symptoms are getting worse Feeling out of control or that you are being controlled by others Feeling like you want to harm yourself or another Unable to care for yourself Worsening hallucinations (hearing voices) Worsening depression or anxiety You have been given the following additional information: Schizo-Affective Disorder (Electronically signed by Mono Porter Dr. 11/06/2016 9:05)
--- NOTE | 2016-11-06 09:51 | ED DISCHARGE INSTRUCTIONS ---
Patient: DEEDEE JASON General Instructions [facility] VisitID: [id number] [place] [address] 46y, M Registration Date/Time: 11/05/2016 Chronic schizoaffective disorder (bipolar type) with exacerbation. ADDITIONAL INFORMATION Schizoaffective Disorder You have been diagnosed with schizoaffective disorder. This is an illness which has symptoms of both schizophrenia and a mood disorder such as depression or bipolar disorder. Schizophrenia is a chronic, severe and disabling brain disorder. The cause of schizophrenia is not yet known. It is believed to be a result of genetic and biological factors like brain chemistry and structure. Depression is one type of mood disorder that is related to brain chemistry. It is not just a state of unhappiness or sadness but a true disease. You may feel a lack of interest in normal activities. Sometimes there is sadness or guilt without any clear reason. Thinking may become slow and there can be a lack energy or feeling of hopelessness. Some people have thoughts of harming themselves at this stage. Thoughts can even turn to suicide. Bipolar Disorder (also called Manic Depression) is the other major mood disorder. It is an illness that causes strong mood swings between depression and blas. In the manic phase you may think fast and do things quickly. It may seem like you are getting a lot done. At first, this may feel very good; but in the extreme this can lead to a life style that is disorganized, chaotic and includes risky behavior (spending sprees, sexual acting out or drug use). In later stages, it may affect eating (no interest in food) and sleeping (unable to sleep for days at a time). Speech may speed up and become difficult for others to understand. You may appear to others as if you are in your own world. The exact cause of schizoaffective disorder is unknown. However, a person is more likely to get this illness if a family member has it. Use of drugs such as amphetamines (speed) and cocaine increase the risk of getting this disorder. People with this illness will generally have to treat it long-term. Medicine and psychotherapy can help. Home Care: Be sure to take your medicine as directed, even if you think you dont need it. Seek support from friends or family by talking about your feelings and thoughts. Avoid the use of amphetamines, cocaine and related drugs. These will only make your condition worse. Follow Up with your doctor or as advised by our staff. For more information contact The National [place] on Mental Illness 798-897-6606 www.oksana.org Get Prompt Medical Attention if any of the following occur: Feeling like your symptoms are getting worse Feeling out of control or that you are being controlled by others Feeling like you want to harm yourself or another Unable to care for yourself Worsening hallucinations (hearing voices) Worsening depression or anxiety You have been given the following additional information: Schizo-Affective Disorder (Electronically signed by Mono Porter Dr. 11/06/2016 9:05)
--- NOTE | 2016-11-06 09:51 | ED MED RECONCILIATION SUMMARY ---
Patient: DEEDEE JASON Medication Reconciliation Report [facility] VisitID: [id number] [address] [place] [address] 46y, M Registration Date/Time: 11/05/2016 Weight: 87.5 kg Height/Length: 66 in. BMI: 31.2 ALLERGIES: No Known Drug Allergy The patient's Home Medications are listed below: THE FOLLOWING MEDICATIONS NEED TO BE RECONCILED: Depakote Oral SEROquel Oral TEGretol Oral The source(s) of the original Home Medication information: patient The following Medications were given to the patient in the Emergency Department: Alprazolam [PO] PO 0.5 mg, administered: 11/05/2016 8:44:00 AM Quetiapine PO 50 mg, administered: 11/05/2016 1:17:00 PM The following Medications were prescribed to the patient: None.
== END 2016-11-06 08:00 ==
LOC: ED SRH 08:12
DX: F25.0 Schizoaffective disorder, bipolar type (principal); E11.9 Type 2 diabetes mellitus without complications; I10 Essential (primary) hypertension; J44.9 Chronic obstructive pulmonary disease, unspecified; F17.210 Nicotine dependence, cigarettes, uncomplicated
CPT/HCPCS: 90004; 90100; 90616; 92010; 92610; 92720; 92760; 92761; 92762; 92763; 92764; 92765; 92766; 92767; 92780; 95059; 97000